=== PATIENT | male | born 1970 | race Caucasian/White ===

== ENCOUNTER 2018-04-11 10:35 | Emergency (ER) | payer BC ==
--- NOTE | 2018-04-11 10:44 | Emergency Department Record ---
History of Present Illness - General Chief complaint: Lower Extremity Pain Stated complaint: RIGHT LEG CALF PAIN. Time Seen by Provider: 04/11/18 10:38 Source: Patient Mode of Arrival: Ambulatory Limitations: No limitations - History of Present Illness Initial comments: 47 yo female presents with right calf swelling since last Wednesday. He initially sprained his ankle. The swelling has not resolved. He had a DVT in the RLE 2 years ago. No history of PE. He was treated then with Xarelto. He is no longer on the medication. No other current symptoms. He was seen in the [facility] and referred to the ED. MD Complaint: Extremity pain, Extremity swelling -: Days(s) Location: Right History of Same: Yes -: Yes Myalgia Radiation: Distal Consistency: Constant Improves with: Elevation Worsens with: Exertion Associated Symptoms: Denies other symptoms - Related Data Allergies Allergy/AdvReac Type Severity Reaction Status Date / Time No Known Drug Allergies Allergy Verified 04/11/18 10:47 Review of Systems Constitutional: Denies: Chills, Fever, Malaise, Weakness Eyes: Denies: Eye discharge ENT: Denies: Congestion, Throat pain Respiratory: Denies: Cough, Dyspnea, Hemoptysis, Wheezes Cardiovascular: Reports: As per HPI, Edema. Denies: Chest pain, Palpitations, Syncope Endocrine: Denies: Fatigue Gastrointestinal: Denies: Abdominal pain, Diarrhea, Nausea, Vomiting Genitourinary: Denies: Dysuria, Frequency, Hematuria Musculoskeletal: Reports: As per HPI, Myalgia. Denies: Arthralgia, Back pain, Joint swelling Skin: Denies: Bruising, Change in color, Rash Neurological: Denies: Headache, Numbness, Weakness Psychiatric: Denies: Anxiety Hematological/Lymphatic: Reports: As per HPI, Blood Clots. Denies: Easy bleeding, Easy bruising Past Medical History - SOCIAL HISTORY Smoking Status: Never smoker - RESPIRATORY Hx Respiratory Disorders: Yes Hx Sleep Apnea: Yes Hx of CPAP: Yes (occasionally, usually sleeps in recliner) - CARDIOVASCULAR Hx Cardio Disorders: No Hx Deep Vein Thrombosis: Yes (RLE 2014 (treated on xaralto for 6months)) - NEURO Hx Neuro Disorders: No - GI Hx GI Disorders: Yes Hx Rectal Bleeding: Yes - Hx Genitourinary Disorders: No - ENDOCRINE Hx Endocrine Disorders: Yes Hx Thyroid Disease: Yes (Hypothyroid) - MUSCULOSKELETAL Hx Musculoskeletal Disorders: Yes Hx Arthritis: Yes 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 negative: Conjunctival injection - ENT ENT exam: Normal exam, Mucous membranes moist Ear exam: Normal external inspection Nasal Exam: Normal inspection Mouth exam: Normal external inspection - Neck Neck exam: Normal inspection - Respiratory Respiratory exam: Normal lung sounds bilaterally. negative: Accessory muscle use, Decreased breath sounds, Respiratory distress, Rhonchi, Stridor, Wheezes - Cardiovascular Cardiovascular Exam: Regular rate, Normal rhythm, Normal heart sounds - Extremities Extremities exam: Calf tenderness, Full ROM, Pedal edema, Tenderness. negative : Normal inspection Image of Full Body: 1 - mild calf swelling compared to the left, soft. No warmth or redness. Skin is intact. Achilles is non tender and intact. Medial and lateral malleous are non tender. - Back Back exam: Reports: Full ROM. Denies: CVA tenderness (R), CVA tenderness (L) - Neurological Neurological exam: Alert, Oriented X3 - Psychiatric Psychiatric exam: Normal affect, Normal mood - Skin Skin exam: Dry, Intact, Normal color, Warm Course - Reevaluation(s) Reevaluation #1: Venous doppler ordered. 04/11/18 10:43 The Venous doppler was negative for DVT We discussed the results, home care and follow up examination of the leg with his PCP. We discussed ice, elevation, compression hose as well. 04/11/18 11:46 Disposition Disposition: Discharge Clinical Impression: Leg pain, right Disposition: Home, Self-Care Condition: (1) Good Instructions: Leg Edema (ED) Additional Instructions: Call your doctor for close follow up of the leg symptoms If the symptoms do not resolve in the next week see your doctor for a recheck Be seen sooner if worse, fever, redness, weakness, numbness or any new concerns or symptoms Forms: Patient Portal Access Time of Disposition: 11:48 Quality - Quality Measures Quality Measures: N/A - Blood Pressure Screening Does Patient Have Any of the Following: No Blood Pressure Classification: Pre-Hypertensive BP Reading Systolic Measurement: 129 Diastolic Measurement: 77 Screening for High Blood Pressure: < Pre-Hypertensive BP, F/U Documented > [ [id number]] Pre-Hypertensive Follow-up Interventions: Referral to alternative/primary care provider.
--- NOTE | 2018-04-14 12:39 | US VENOUS DOPPLER REPORT ---
EXAM: EMERGENCY VENOUS DOPPLER ULTRASOUND OF THE RIGHT LOWER EXTREMITY HISTORY: CALF PAIN AND SWELLING, DVT TWO YEARS AGO. TECHNIQUE: Emergency venous Doppler ultrasound of the right lower extremity was performed with color flow and spectral analysis utilized, supplemented by compression and flow augmentation maneuvers in the thigh and popliteal region. The venous anatomy was evaluated from the level of the external iliac vein down into the calf. Comparison: Right lower extremity venous Doppler ultrasound images from the bilateral venous Doppler ultrasound dated 09/21/14. FINDINGS: The venous Doppler ultrasound of the right lower extremity appears negative today. Flow was seen throughout with color flow and spectral analysis Doppler with DVT identified. Compression and flow augmentation evident in the thigh and popliteal region as well. IMPRESSION: NEGATIVE VENOUS DOPPLER ULTRASOUND OF THE RIGHT LOWER EXTREMITY WITH NO DVT IDENTIFIED. JOB NUMBER: [id number] [facility]
== END 2018-04-11 11:57 | disposition home or self-care (01) ==
LOC: ER 10:35
DX: M79.604 Pain in right leg (principal); E03.9 Hypothyroidism, unspecified; Z86.718 Personal history of other venous thrombosis and embolism; F31.9 Bipolar disorder, unspecified
CPT/HCPCS: 99283